=== PATIENT | female | born 2000 | race Caucasian/White ===

== ENCOUNTER 2021-02-12 00:20 | Inpatient (IN) | payer MEDICAID ==
[2021-02-12] MEDS ORDERED: Ondansetron 4 MG/2 ML SDV IVPUSH PRN (01:15)
[2021-02-12] MEDS ORDERED: Sodium Chloride 0.9% 10 ML Syringe FLUSH PRN (01:15)
[2021-02-12] MEDS ORDERED: Oxytocin/Lactated Ringers 10 UNIT/1,000 ML BAG IV SCH ×3 (01:15→07:30)
[2021-02-12] MEDS ORDERED: Lactated Ringers 1,000 ML IV SCH (01:15)
[2021-02-12] MEDS ORDERED: Nalbuphine 10 MG/1 ML Vial IVPUSH PRN (01:15)
[2021-02-12] MEDS ORDERED: Lidocaine 1% 50 ML MDV INJECT ONE (01:15)
[2021-02-12] MEDS ORDERED: Calcium Carbonate 500 MG Tab.Chew PO PRN (01:15)
--- NOTE | 2021-02-12 06:49 | PCM.LDHP ---
L&D History of Present Illness - General Date of Service: 02/12/21 Admit Problem/Dx: Patient Status Order with Admit Dx/Problem 02/12/21 00:37 Patient Status [ADT] Routine 02/12/21 01:15 Patient Status [ADT] Routine Admission Diagnosis/Problem Admission Diagnosis/Problem Active labor Source of Information: Patient History Limitations: Reports: No Limitations - History of Present Illness Introduction:: Patient is a 20 y/o at 40 0/7 wks who presented overnight with concerns of LOF and positive Amnisure. Doing well currently. Hasn't had strong, regular contractions - Related Data Allergies/Adverse Reactions: Allergies Allergy/AdvReac Type Severity Reaction Status Date / Time No Known Allergies Allergy Verified 02/12/21 01:01 Home Medications: Home Meds No122/Iron/Folic Acid [ Multi Tablet] 1 each PO DAILY 02/12/21 [History] Past Medical History - Past Health History Medical/Surgical History: Denies Medical/Surgical History BATCH BLENDER History: Reports: : 1 Para: 0 LMP (Approximate): Social & Family History - Family History Family Medical History: No Pertinent Family History - Tobacco Use Tobacco Use Status *Q: Current Every Day Tobacco User Years of Tobacco use: 2 Packs/Tins Daily: 0.5 Used Tobacco, but Quit: No Second Hand Smoke Exposure: Yes - Alcohol Use Alcohol Use History: No - Recreational Drug Use Recreational Drug Use: Yes Drug Use in Last 12 Months: Yes Recreational Drug Type: Reports: Marijuana/Hashish Recreational Drug Use Frequency: Monthly H&P Review of Systems - Review of Systems: Review Of Systems: See Below General: Reports: No Symptoms Pulmonary: Reports: No Symptoms Cardiovascular: Reports: No Symptoms Gastrointestinal: Reports: No Symptoms Genitourinary: Reports: No Symptoms Musculoskeletal: Reports: No Symptoms Neurological: Reports: No Symptoms L&D Exam - Exam Exam: See Below - Vital Signs Vital Signs: Last Vital Signs Temp 37.1 C 02/12/21 00:37 Pulse 88 02/12/21 00:37 Resp 16 02/12/21 00:37 BP 140/86 02/12/21 00:37 Pulse Ox 98 02/12/21 00:37 Weight: 73.028 kg - OB Specific Contraction Intensity: Mild Movement: Active Heart Tones: Present Heart Tones per Min: 145 Heart Rate (FHR) Variability: Moderate (6-25 bpm) Presentation: Vertex - Lantigua Score Lantigua Score Cervix Position: Midposition Lantigua Score Consistency: Soft Lantigua Score Effacement: >80% Lantigua Score Dilation: 3-4 cm Lantigua Score Infant's Station: -1 ,0 Lantigua Score Total: 10 - Exam General: Alert, Oriented, Cooperative Lungs: Clear to Auscultation, Normal Respiratory Effort Cardiovascular: Regular Rate, Regular Rhythm GI/Abdominal Exam: Soft, Non-Tender Genitourinary: Normal external exam Extremities: Normal Inspection - Patient Data Lab Results Last 24 hrs: Laboratory Results - last 24 hr 02/12/21 02/12/21 02/12/21 Range/Units 00:48 01:30 01:30 WBC 11.16 H (3.98-10.04) K/mm3 RBC 3.38 L (3.98-5.22) M/mm3 Hgb 10.6 L (11.2-15.7) gm/dl Hct 31.3 L (34.1-44.9) % MCV 92.6 (79.4-94.8) fl MCH 31.4 (25.6-32.2) pg MCHC 33.9 (32.2-35.5) g/dl RDW Std Deviation 44.5 (36.4-46.3) fL Plt Count 198 (182-369) K/mm3 MPV 8.9 L (9.4-12.3) fl Neut % (Auto) 72.5 H (34.0-71.1) % Lymph % (Auto) 17.7 L (19.3-51.7) % [place] % (Auto) 8.8 (4.7-12.5) % Eos % (Auto) 0.4 L (0.7-5.8) Baso % (Auto) 0.2 (0.1-1.2) % Neut # (Auto) 8.10 H (1.56-6.13) K/mm3 Lymph # (Auto) 1.97 (1.18-3.74) K/mm3 [place] # (Auto) 0.98 H (0.24-0.36) K/mm3 Eos # (Auto) 0.05 (0.04-0.36) K/mm3 Baso # (Auto) 0.02 (0.01-0.08) K/mm3 Membrane Rupture Positive H SARS-CoV-2 RNA ([facility]WAR) (NEGATIVE) Blood Type A POSITIVE Gel Antibody Screen Negative 02/12/21 Range/Units 02:10 WBC (3.98-10.04) K/mm3 RBC (3.98-5.22) M/mm3 Hgb (11.2-15.7) gm/dl Hct (34.1-44.9) % MCV (79.4-94.8) fl MCH (25.6-32.2) pg MCHC (32.2-35.5) g/dl RDW Std Deviation (36.4-46.3) fL Plt Count (182-369) K/mm3 MPV (9.4-12.3) fl Neut % (Auto) (34.0-71.1) % Lymph % (Auto) (19.3-51.7) % [place] % (Auto) (4.7-12.5) % Eos % (Auto) (0.7-5.8) Baso % (Auto) (0.1-1.2) % Neut # (Auto) (1.56-6.13) K/mm3 Lymph # (Auto) (1.18-3.74) K/mm3 [place] # (Auto) (0.24-0.36) K/mm3 Eos # (Auto) (0.04-0.36) K/mm3 Baso # (Auto) (0.01-0.08) K/mm3 Membrane Rupture SARS-CoV-2 RNA ([facility]AR) Negative (NEGATIVE) Blood Type Gel Antibody Screen Result Diagrams: 02/12/21 01:30 - Problem List (1) 40 weeks gestation of SNOMED Code(s): 86243286 ICD Code: Z3A.40 - 40 WEEKS GESTATION OF Status: Acute Current Visit: Yes Problem List Initiated/Reviewed/Updated: Yes Orders Last 24hrs: Active Orders 24 hr Category Date Time Status Patient Status [ADT] Routine ADT 02/12/21 01:15 Active Activity as Tolerated [RC] PFP Care 02/12/21 01:15 Active Communication Order [RC] ASDIRECTED Care 02/12/21 01:15 Active Heart Tones [RC] ASDIRECTED Care 02/12/21 01:16 Active Notify Provider [RC] PFP Care 02/12/21 01:15 Active Notify Provider [RC] PRN Care 02/12/21 01:15 Active Peripheral IV Care [RC] . DIRECTED Care 02/12/21 01:16 Active Pump Management, Intrathecal [RC] ASDIRECTED Care 02/12/21 01:16 Active Up ad Blank [RC] ASDIRECTED Care 02/12/21 00:37 Active Urinary Catheter Assessment [RC] ASDIRECTED Care 02/12/21 01:15 Active Regular Diet [DIET] Diet 02/12/21 Breakfast Active DRUG SCREEN, URINE [URCHEM] Stat Lab 02/12/21 03:20 Received HEP C VIRUS AB [REF] Stat Lab 02/12/21 01:30 Received PATIENT RETYPE [BBK] Routine Lab 02/12/21 02:23 Ordered RAPID PLASMA REAGIN,RPR [CHEM] Stat Lab 02/12/21 01:30 Received Calcium Carbonate [Tums] Med 02/12/21 01:15 Active 1,000 mg PO Q2H PRN Lactated Ringers [Ringers, Lactated] 1,000 ml Med 02/12/21 01:15 Active IV ASDIRECTED Nalbuphine [Nubain] Med 02/12/21 01:15 Active 10 mg IVPUSH Q2H PRN Ondansetron [Zofran] Med 02/12/21 01:15 Active 4 mg IVPUSH Q4H PRN Oxytocin/Lactated Ringers [Pitocin in LR 10 Units/1,000 Med 02/12/21 01:15 Active ML] 10 unit in 1,000 ml IV .CONTINUOUS Oxytocin/Lactated Ringers [Pitocin in LR 10 Units/1,000 Med 02/12/21 01:15 Active ML] 10 unit in 1,000 ml IV .CONTINUOUS Sodium Chloride 0.9% [Saline Flush] Med 02/12/21 01:15 Active 10 ml FLUSH ASDIRECTED PRN Electronic Heart Tones Ext w TOCO [WOMSER] Oth 02/12/21 01:15 Ordered Routine Electronic Heart Tones Internal [WOMSER] Per Unit Oth 02/12/21 01:15 Ordered Routine Peripheral IV Insertion Adult [OM.PC] Routine Oth 02/12/21 01:15 Ordered Resuscitation Status Routine Resus Stat 02/12/21 00:37 Ordered Medication Orders Calcium Carbonate/Glycine (Calcium Carbonate 500 Mg Tab.Chew) 1,000 mg PO Q2H PRN PRN Reason: Indigestion Lactated Ringer's (Ringers, Lactated) 1,000 mls @ 100 mls/hr IV ASDIRECTED ON LICENSE OF [facility] Last Admin: 02/12/21 05:37 Dose: 100 mls/hr Documented by: RUBINA Oxytocin/Lactated Ringer's (Pitocin In Lr 10 Units/1,000 Ml) 10 unit in 1,000 mls @ 100 mls/hr IV .CONTINUOUS CHERYL Oxytocin/Lactated Ringer's (Pitocin In Lr 10 Units/1,000 Ml) 10 unit in 1,000 mls @ 500 mls/hr IV .CONTINUOUS CHERYL Nalbuphine HCl (Nalbuphine 10 Mg/1 Ml Vial) 10 mg IVPUSH Q2H PRN PRN Reason: Pain Ondansetron HCl (Ondansetron 4 Mg/2 Ml Sdv) 4 mg IVPUSH Q4H PRN PRN Reason: Nausea/Vomiting Sodium Chloride (Sodium Chloride 0.9% 10 Ml Syringe) 10 ml FLUSH ASDIRECTED PRN PRN Reason: Keep Vein Open Assessment/Plan Comment:: * Labs previously done * Forebag ruptured on exam. Will also start pitocin for augmentation as no regular contractions * GBS negative * Pain management per patient preference * Anticipate
--- NOTE | 2021-02-12 09:35 | PCM.DEL ---
L & D Note - General Info Date of Service: 02/12/21 - Delivery Note Labor: Augmented by Oxytocin Delivery Outcome: Livebirth Delivery Method: Spontaneous Vaginal Delivery-Single Delivery Mode: Spontaneous Presentation: Left Occiput Anterior (BRIE) Nuchal Cord: None Anesthesia Type: None Amniotic Fluid Description: Clear Episiotomy Type: None Laceration: 2nd Degree, Perineal Suture type: Vicryl Suture size: 2-0 Placenta: Intact, Spontaneous Cord: 3 Vessels Resuscitation Needed: Yes [place]: Bulb Syringe, Stimulated, Warmed, [place] Used Delivery Comments (Free Text/Narrative):: Patient found to be complete and began pushing. With maternal pushing effort head delivered from BRIE presentation. No nuchal cord present. With gentle downward traction the shoulders and body delivered. Infant placed on maternal abdomen. Cord clamped and cut. Cord blood obtained. Placenta allowed time to separate and expelled intact. Inspection of perineum showed a 2nd degree laceration repaired with a 2-0 Vicryl in the typical fashion - General Info Date of Service: 02/12/21 - Patient Data Vitals - Most Recent: Last Vital Signs Temp 37.1 C 02/12/21 00:37 Pulse 88 02/12/21 00:37 Resp 16 02/12/21 00:37 BP 140/86 02/12/21 00:37 Pulse Ox 98 02/12/21 00:37 Weight - Most Recent: 73.028 kg - Problem List & Annotations (1) Vaginal delivery SNOMED Code(s): 912847592 Code(s): O80 - ENCOUNTER FOR FULL-TERM UNCOMPLICATED DELIVERY Status: Acute Current Visit: Yes (2) 40 weeks gestation of SNOMED Code(s): 63148352 Code(s): Z3A.40 - 40 WEEKS GESTATION OF Status: Acute Current Visit: Yes - Problem List Review Problem List Initiated/Reviewed/Updated: Yes - My Orders Last 24 Hours: My Active Orders 02/12/21 00:37 Up ad Blank [RC] ASDIRECTED Resuscitation Status Routine 02/12/21 01:15 Patient Status [ADT] Routine Activity as Tolerated [RC] PFP Communication Order [RC] ASDIRECTED Notify Provider [RC] PFP Notify Provider [RC] PRN Urinary Catheter Assessment [RC] ASDIRECTED Calcium Carbonate [Tums] 1,000 mg PO Q2H PRN Lactated Ringers [Ringers, Lactated] 1,000 ml IV ASDIRECTED Nalbuphine [Nubain] 10 mg IVPUSH Q2H PRN Ondansetron [Zofran] 4 mg IVPUSH Q4H PRN Oxytocin/Lactated Ringers [Pitocin in LR 10 Units/1,000 ML] 10 unit in 1,000 ml IV .CONTINUOUS Oxytocin/Lactated Ringers [Pitocin in LR 10 Units/1,000 ML] 10 unit in 1,000 ml IV .CONTINUOUS Sodium Chloride 0.9% [Saline Flush] 10 ml FLUSH ASDIRECTED PRN Electronic Heart Tones Ext w TOCO [WOMSER] Routine Electronic Heart Tones Internal [WOMSER] Per Unit Routine Peripheral IV Insertion Adult [OM.PC] Routine 02/12/21 01:16 Heart Tones [RC] ASDIRECTED Peripheral IV Care [RC] . DIRECTED Pump Management, Intrathecal [RC] ASDIRECTED 02/12/21 01:30 HEP C VIRUS AB [REF] Stat RAPID PLASMA REAGIN,RPR [CHEM] Stat 02/12/21 Breakfast Regular Diet [DIET] 02/12/21 07:30 Oxytocin/Lactated Ringers [Pitocin in LR 10 Units/1,000 ML] 10 unit in 1,000 ml IV TITRATE - Assessment Assessment:: PPD#0 - Plan Plan:: * Routine cares * Breast feeding * Discharge home in 1-2 days
[2021-02-12] MEDS ORDERED: Acetaminophen 325 MG Tab PO PRN (09:51)
[2021-02-12] MEDS ORDERED: Benzocaine/Menthol 20%-0.5% Spray 56 GM Canister TOP PRN (09:51)
[2021-02-12] MEDS ORDERED: Witch Hazel Medicated Pads 40/Jar TOP PRN (09:51)
[2021-02-12] MEDS: Ibuprofen 600 MG Tab PO PRN (17:34)
[2021-02-12] MEDS: Nicotine 7 MG/24 Hr Patch TRDERM SCH (17:35)
[2021-02-13] MEDS: Ibuprofen 600 MG Tab PO PRN ×3 (04:00→21:20)
--- NOTE | 2021-02-13 07:28 | PCM.PNPP ---
- General Info Date of Service: 02/13/21 Functional Status: Reports: Pain Controlled, Tolerating Diet, Ambulating, Urinating - Review of Systems General: Reports: No Symptoms Pulmonary: Reports: No Symptoms Cardiovascular: Reports: No Symptoms Gastrointestinal: Reports: No Symptoms Genitourinary: Reports: No Symptoms Musculoskeletal: Reports: No Symptoms Neurological: Reports: No Symptoms - General Info Date of Service: 02/13/21 - Patient Data Vital Signs - Most Recent: Last Vital Signs Temp 36.4 C 02/13/21 02:28 Pulse 78 02/13/21 02:28 Resp 14 02/13/21 02:28 BP 120/66 02/13/21 02:28 Pulse Ox 99 02/13/21 02:28 Weight - Most Recent: 73.028 kg Lab Results - Last 24 Hours: Laboratory Results - last 24 hr 02/12/21 Range/Units 01:30 RPR Non-reactive (NONREACTIVE) Med Orders - Current: Current Medications Acetaminophen (Acetaminophen 325 Mg Tab) 650 mg PO Q4H PRN PRN Reason: mild pain or fever Last Admin: 02/12/21 22:18 Dose: 650 mg Documented by: Benzocaine/Menthol (Benzocaine/Menthol 20%-0.5% [place] 56 Gm Canister) 0 gm TOP ASDIRECTED PRN PRN Reason: Perineal Comfort Measure Last Admin: 02/12/21 11:27 Dose: 1 can Documented by: Docusate Sodium (Docusate Sodium 100 Mg Cap) 100 mg PO BID PRN PRN Reason: Constipation Ibuprofen (Ibuprofen 600 Mg Tab) 600 mg PO Q6H PRN PRN Reason: Mild pain or fever Last Admin: 02/13/21 04:00 Dose: 600 mg Documented by: Miscellaneous Information (Remove Patch) 0 ea TRDERM DAILY CHERYL Nicotine (Nicotine 7 Mg/24 Hr Patch) 7 mg TRDERM DAILY CHERYL Last Admin: 02/12/21 17:35 Dose: 7 mg Documented by: Chance King (Chance King Medicated Pads 40/Jar) 1 pad TOP ASDIRECTED PRN PRN Reason: Perineal Comfort Measure Last Admin: 02/12/21 11:27 Dose: 1 tub Documented by: Discontinued Medications Calcium Carbonate/Glycine (Calcium Carbonate 500 Mg Tab.Chew) 1,000 mg PO Q2H PRN PRN Reason: Indigestion Lactated Ringer's (Ringers, Lactated) 1,000 mls @ 100 mls/hr IV ASDIRECTED CHERYL Last Admin: 02/12/21 05:37 Dose: 100 mls/hr Documented by: Oxytocin/Lactated Ringer's (Pitocin In Lr 10 Units/1,000 Ml) 10 unit in 1,000 mls @ 100 mls/hr IV .CONTINUOUS CHERYL Oxytocin/Lactated Ringer's (Pitocin In Lr 10 Units/1,000 Ml) 10 unit in 1,000 mls @ 500 mls/hr IV .CONTINUOUS CHERYL Oxytocin/Lactated Ringer's (Pitocin In Lr 10 Units/1,000 Ml) 10 unit in 1,000 mls @ 12 mls/hr IV TITRATE CHERYL; Protocol Last Admin: 02/12/21 07:29 Dose: 2 munits/min, 12 mls/hr Documented by: Lidocaine HCl (Lidocaine 1% 50 Ml Mdv) 20 ml INJECT ONETIME ONE Stop: 02/12/21 01:16 Last Admin: 02/12/21 09:36 Dose: 20 ml Documented by: Nalbuphine HCl (Nalbuphine 10 Mg/1 Ml Vial) 10 mg IVPUSH Q2H PRN PRN Reason: Pain Ondansetron HCl (Ondansetron 4 Mg/2 Ml Sdv) 4 mg IVPUSH Q4H PRN PRN Reason: Nausea/Vomiting Sodium Chloride (Sodium Chloride 0.9% 10 Ml Syringe) 10 ml FLUSH ASDIRECTED PRN PRN Reason: Keep Vein Open - Interaction Infant Disposition, : in Room with Family Infant Interaction: Holding Infant Feeding: Attempted ; Nursed Fair/Poor Support Person: - Recovery Exam Fundal Tone: Firm Fundal Level: 1 Fingerbreadths Below Umbilicus Fundal Placement: Midline Lochia Amount: Small Lochia Color: Rubra/Red Perineum Description: Other (see below) Other Perinuem Description: 2nd degree with repair Bladder Status: Voiding Urinary Elimination: Voided - Exam General: Alert, Oriented, Cooperative GI/Abdominal Exam: Soft, Non-Tender - Problem List & Annotations (1) Vaginal delivery SNOMED Code(s): 766590067 Code(s): O80 - ENCOUNTER FOR FULL-TERM UNCOMPLICATED DELIVERY Status: Acute Current Visit: Yes (2) 40 weeks gestation of SNOMED Code(s): 23004052 Code(s): Z3A.40 - 40 WEEKS GESTATION OF Status: Acute Current Visit: Yes - Problem List Review Problem List Initiated/Reviewed/Updated: Yes - My Orders Last 24 Hours: My Active Orders 02/12/21 09:51 Acetaminophen [TylenoL] 650 mg PO Q4H PRN Benzocaine/Menthol [Dermoplast Pain Relief [place]] See Dose Instructions TOP ASDIRECTED PRN Docusate Sodium [Colace] 100 mg PO BID PRN Ibuprofen [Motrin] 600 mg PO Q6H PRN witch Ann [Tucks] 1 pad TOP ASDIRECTED PRN Heat Therapy [OM.PC] PRN 02/12/21 09:51 Activity as Tolerated [RC] PER UNIT ROUTINE Vital Signs [RC] ,,, Assess Lochia [WOMSER] Per Unit Routine Assess Uterine Involution [WOMSER] Per Unit Routine Breast Pump [WOMSER] Per Unit Routine Ice Therapy [OM.PC] Per Unit Routine Perineal Care [OM.PC] Per Unit Routine Peripheral IV Discontinue [OM.PC] Routine Sitz Bath [OM.PC] Per Unit Routine 02/12/21 Lunch Regular Diet [DIET] 02/12/21 17:15 Nicotine [Habitrol] 7 mg TRDERM DAILY 02/13/21 09:00 Remove Patch 0 ea TRDERM DAILY 02/13/21 09:51 Heat Therapy [OM.PC] PRN - Assessment Assessment:: PPD#1 - Plan Plan:: * Routine cares * Breast feeding * Discharge home tomorrow
[2021-02-13] MEDS: Docusate Sodium 100 MG Cap PO PRN ×2 (07:47→21:50)
[2021-02-13] MEDS: Nicotine 7 MG/24 Hr Patch TRDERM SCH (17:43)
[2021-02-14] MEDS: Ibuprofen 600 MG Tab PO PRN ×2 (04:23→10:07)
--- NOTE | 2021-02-14 10:50 | PCM.DCSUM1 ---
Discharge Summary - Hospital Course Free Text/Narrative:: Shani is a 20-year-old 1 para 1-0-0-1 white female who was admitted on 02/12/2021 at 40 and 07 weeks gestational age with SROM with positive AmniSure. Very few contractions noted. Patient was augmented with Pitocin. She progressed through labor. She underwent epidural analgesia. She then had a lemus, spontaneous vaginal in the left occiput anterior position. She had a second-degree perineal laceration which was repaired with Vicryl. She is breast-feeding. course has been unremarkable. She is made good bowel, bladder and ambulatory recovery. She is ambulating well, has minimal lochia, is voiding well and has pain under good control. She is desiring discharge home. Diagnosis: Stroke: No - Discharge Data Discharge Date: 02/14/21 Discharge Disposition: Home, Self-Care 01 Condition: Good - Referral to Home Health Primary Care Physician: Marissa Bhatia MD - Discharge Diagnosis/Problem(s) (1) 40 weeks gestation of SNOMED Code(s): 85268407 ICD Code: Z3A.40 - 40 WEEKS GESTATION OF Status: Acute Current Visit: Yes (2) Vaginal delivery SNOMED Code(s): 669047901 ICD Code: O80 - ENCOUNTER FOR FULL-TERM UNCOMPLICATED DELIVERY Status: Acute Current Visit: Yes - Patient Instructions Diet: Regular Diet as Tolerated (Nursing diet with increased calories and calcium as recommended) Activity: As Tolerated (No intercourse or tampons until bleeding resolves) Driving: May Drive Today Showering/Bathing: May Shower (May take a bath) Notify Provider of: Fever, Increased Pain, Swelling and Redness, Nausea and/or Vomiting - Discharge Plan Home Medications: Home Meds No122/Iron/Folic Acid [ Multi Tablet] 1 each PO DAILY 02/12/21 [History] Acetaminophen [Tylenol] 650 mg PO Q4H PRN tablet 02/14/21 [Rx] Ibuprofen [Motrin] 600 mg PO Q6H PRN tablet 02/14/21 [Rx] Nicotine [Habitrol] 7 mg TRDERM DAILY patch 02/14/21 [Rx] Patient Handouts: Care After Vaginal Delivery, Eating Plan for Women, Steps to Quit Smoking - Discharge Summary/Plan Comment DC Time >30 min.: No Total # of Minutes for Discharge Time: 10 Discharge Summary/Plan Comment: Discharge instructions: 1. Discharge home 2. Diet, activity and follow-up discussed with patient. Recommend nursing diet with increased calories and calcium. 3. Precautions given concern increased pain, bleeding, temperature, signs/symptoms of DVT/PE. 4. Medications per home medication was printed, discussed with and given to the patient. 5. Return to clinic-Dr. Bhatia [facility] in 2 weeks. Diagnosis: Term -delivered Condition: Good - Patient Data Vitals - Most Recent: Last Vital Signs Temp 37.2 C 02/14/21 10:06 Pulse 87 02/14/21 10:06 Resp 16 02/14/21 10:06 BP 130/83 02/14/21 10:06 Pulse Ox 99 02/14/21 10:06 Weight - Most Recent: 73.028 kg I&O - Last 24 hours: Intake & Output 02/13/21 02/14/21 02/14/21 22:59 06:59 14:59 Intake Total 160 Balance 160 Med Orders - Current: Current Medications Acetaminophen (Acetaminophen 325 Mg Tab) 650 mg PO Q4H PRN PRN Reason: mild pain or fever Last Admin: 02/12/21 22:18 Dose: 650 mg Documented by: Benzocaine/Menthol (Benzocaine/Menthol 20%-0.5% [place] 56 Gm Canister) 0 gm TOP ASDIRECTED PRN PRN Reason: Perineal Comfort Measure Last Admin: 02/12/21 11:27 Dose: 1 can Documented by: Docusate Sodium (Docusate Sodium 100 Mg Cap) 100 mg PO BID PRN PRN Reason: Constipation Last Admin: 02/13/21 21:50 Dose: 100 mg Documented by: Ibuprofen (Ibuprofen 600 Mg Tab) 600 mg PO Q6H PRN PRN Reason: Mild pain or fever Last Admin: 02/14/21 10:07 Dose: 600 mg Documented by: Miscellaneous Information (Remove Patch) 0 ea TRDERM DAILY [facility] Last Admin: 02/13/21 17:46 Dose: Not Given Documented by: Nicotine (Nicotine 7 Mg/24 Hr Patch) 7 mg TRDERM DAILY [facility] Last Admin: 02/13/21 17:43 Dose: 7 mg Documented by: Chance King (Witch Christine Medicated Pads 40/Jar) 1 pad TOP ASDIRECTED PRN PRN Reason: Perineal Comfort Measure Last Admin: 02/12/21 11:27 Dose: 1 tub Documented by: Discontinued Medications Calcium Carbonate/Glycine (Calcium Carbonate 500 Mg Tab.Chew) 1,000 mg PO Q2H PRN PRN Reason: Indigestion Lactated Ringer's (Ringers, Lactated) 1,000 mls @ 100 mls/hr IV ASDIRECTED CHERYL Last Admin: 02/12/21 05:37 Dose: 100 mls/hr Documented by: Oxytocin/Lactated Ringer's (Pitocin In Lr 10 Units/1,000 Ml) 10 unit in 1,000 mls @ 100 mls/hr IV .CONTINUOUS CHERYL Oxytocin/Lactated Ringer's (Pitocin In Lr 10 Units/1,000 Ml) 10 unit in 1,000 mls @ 500 mls/hr IV .CONTINUOUS CHERYL Oxytocin/Lactated Ringer's (Pitocin In Lr 10 Units/1,000 Ml) 10 unit in 1,000 mls @ 12 mls/hr IV TITRATE CHERYL; Protocol Last Admin: 02/12/21 07:29 Dose: 2 munits/min, 12 mls/hr Documented by: Lidocaine HCl (Lidocaine 1% 50 Ml Mdv) 20 ml INJECT ONETIME ONE Stop: 02/12/21 01:16 Last Admin: 02/12/21 09:36 Dose: 20 ml Documented by: Nalbuphine HCl (Nalbuphine 10 Mg/1 Ml Vial) 10 mg IVPUSH Q2H PRN PRN Reason: Pain Ondansetron HCl (Ondansetron 4 Mg/2 Ml Sdv) 4 mg IVPUSH Q4H PRN PRN Reason: Nausea/Vomiting Sodium Chloride (Sodium Chloride 0.9% 10 Ml Syringe) 10 ml FLUSH ASDIRECTED PRN PRN Reason: Keep Vein Open
== END 2021-02-14 11:55 | disposition home or self-care (01) | DRG 807 ==
LOC: JD.OBCHECK 00:20 → JD.OB 00:27 → JD.OBCHECK 01:14 → UNDOADMOB 01:15 → INTOOBSV 01:15 → JD.OB 01:15 → OBSVTOIN 01:15 → JD.OB 12:54 → OBSVTOIN 12:54
PROVIDERS: ADMIT Obstetrics & Gynecology; ATTEND Obstetrics & Gynecology
PROC: 10E0XZZ Delivery of Products of Conception, External Approach (ICD-10-PCS; principal; 2021-02-12)
PROC: 0KQM0ZZ Repair Perineum Muscle, Open Approach (ICD-10-PCS; 2021-02-12)
DX: O99.334 Smoking (tobacco) complicating childbirth (principal); Z37.0 Single live birth; F17.200 Nicotine dependence, unspecified, uncomplicated; O70.1 Second degree perineal laceration during delivery; Z20.822 Contact with and (suspected) exposure to COVID-19; Z3A.40 40 weeks gestation of pregnancy
CPT/HCPCS: 36415; 59025; 59409; 80306; 84112; 85025; 86592; 86803; 86850; 86900; 86901; A9270-GY; J2001; J2590; J7120; U0002